=== PATIENT | female | born 1985 | race Caucasian/White ===

== ENCOUNTER 2017-11-09 21:30 | Inpatient (IN) | payer OTHER, BC ==
[2017-11-09] MEDS ORDERED: METHYLERGONOVINE 0.2 MG/ML 1 ML AMP IM PRN (23:09)
[2017-11-09] MEDS ORDERED: OXYTOCIN 10 UNIT/ML 1 ML VIAL IM PRN (23:09)
[2017-11-09] MEDS ORDERED: LIDOCAINE 1% (PF) 10 MG/ML (30 ML SDV) SQ PRN (23:09)
[2017-11-09] MEDS ORDERED: CARBOPROST TROMETHAMINE 250 MCG/ML 1 ML AMP IM PRN (23:09)
[2017-11-09] MEDS ORDERED: TERBUTALINE 1 MG/ML VIAL SQ PRN (23:09)
[2017-11-09] MEDS ORDERED: BUTORPHANOL 1 MG/ML 1 ML VIAL IV PRN (23:11)
[2017-11-09] MEDS: LACTATED RINGERS 1,000 ML IV SCH ×2 (23:31→23:50)
[2017-11-09] MEDS ORDERED: fentaNYL (PF) 50 MCG/ML 5 ML AMP ONE (23:58)
[2017-11-09] MEDS ORDERED: SODIUM CHLORIDE 0.9% 100 ML BAG ONE (23:58)
[2017-11-09] MEDS ORDERED: BUPIVACAINE (PF) 0.25% 30 ML VIAL ONE (23:58)
[2017-11-10 00:06] LABS: Basophils % (A) 0 %; Eosinophils # (A) 0.2 k/uL (0-0.7); Eosinophils % (A) 1 %; HCT 36.9 % (34.0-46.0); HGB 12.2 gm/dL (11.4-16.0); Lymphocytes # (A) 3.1 k/uL (1.0-4.8); Lymphocytes % (A) 25 %; MCH 30.1 pg (25.0-35.0); MCHC 33.1 g/dL (31.0-37.0); MCV 90.9 fL (80.0-100.0); Mean Platelet Volume 7.1; Monocytes # (A) 0.8 k/uL (0-1.0); Monocytes % (A) 6 %; Neutrophils # (A) 8.3 k/uL (1.3-7.7); Neutrophils % (A) 65 %; Platelet Count 390 k/uL (150-450); RBC 4.06 m/uL (3.80-5.40); RDW 13.6 % (11.5-15.5); WBC 12.8 k/uL (3.8-10.6)
--- NOTE | 2017-11-10 02:18 | P.HPOB ---
History of Present Illness H&P Date: 11/10/17 Chief Complaint: 40-0/7 weeks, active labor The patient is a 32-year-old 4 para 2011 admitted at 40-0/7 weeks as established by last menstrual period and confirmed by second trimester ultrasound perches admitted in early active labor with all signs reassuring. Her has been uncomplicated. She does carry a history of - induced hypertension in her previous which is not an evidence today. Group B strep status is negative. Obstetrical history: 4 para 2012 with 2 term vaginal deliveries without , occasions. She did have one early miscarriage not requiring D&C. Current statistics are listed in history of present illness. EDC of 2017 was established by last menstrual period and confirmed by 19 week ultrasound. Laboratory workup done traits of blood type of A+ with a negative antibody screen. Rubella status is immune. All other laboratory workup was within normal limits. Early Glucola and second trimester Glucola were within normal limits. Group B strep status is negative. Gynecologic history: Unremarkable with no history of any infections to include STDs. Review of Systems Review of systems is confined to history of present illness. Past Medical History Past Medical History: GERD/Reflux History of Any Multi-Drug Resistant Organisms: None Reported Additional Past Surgical History / Comment(s): wisdom teeth Past Anesthesia/Blood Transfusion Reactions: No Reported Reaction Past Psychological History: No Psychological Hx Reported Smoking Status: Never smoker Past Alcohol Use History: None Reported Past Drug Use History: None Reported - Past Family History Father Family Medical History: Hypertension Medications and Allergies Home Medications Medication Instructions Recorded Confirmed Type Pantoprazole Sodium [Protonix] 1 tab PO DAILY 11/08/14 11/09/17 History Pnv,Calcium 72/Iron/Folic Acid 1 tab PO DAILY 11/08/14 11/09/17 History [Preplus Ca-Fe 27 mg-FA 1 mg Tb] Allergies Allergy/AdvReac Type Severity Reaction Status Date / Time No Known Allergies Allergy Verified 11/09/17 21:46 Exam Vital Signs Temp Pulse Resp BP 11/09/17 21:48 98.4 F 116 H 18 159/86 Intake and Output 11/09/17 11/09/17 11/10/17 14:59 22:59 06:59 Other: Weight 92.079 kg 92.079 kg In general, this is a well-developed, well-nourished white female in no acute distress. Her heart has a regular rhythm and rate without murmur. Her lungs are clear to auscultation bilaterally in all chapman. Her abdomen is gravid, nondistended, has normal active bowel sounds, is soft, nontender, and without any palpable masses aside from the uterine fundus. Her extremities are without any cyanosis, clubbing, or edema and are nontender to palpation bilaterally. Digital cervical examination on straights her cervix to be approximately 8 cm dilated, 80% effaced, the vertex in presentation at -2 station. Artificial rupture of membranes is carried out demonstrating clear fluid. Results Result Diagrams: 11/09/17 23:35 Abnormal Lab Results - Last 24 Hours (Table) 11/09/17 Range/Units 23:35 WBC 12.8 H (3.8-10.6) k/uL Neutrophils # 8.3 H (1.3-7.7) k/uL Assessment and Plan (1) Active labor at term Current Visit: Yes Status: Acute Code(s): [id number] - SNOMED Code(s): 20571676 Plan: The patient has been admitted for close maternal and surveillance. Expectant management is being practiced. She has an epidural catheter in place for analgesia. We will anticipate normal vaginal delivery in the near future.
[2017-11-10 03:22] VITALS: BMI 37.1
[2017-11-10] MEDS ORDERED: HYDROcodone/APAP 7.5-325MG 1 EACH TAB PO PRN (03:42)
[2017-11-10] MEDS ORDERED: diphenhydrAMINE 25 MG CAP PO PRN (03:42)
[2017-11-10] MEDS ORDERED: LANOLIN CREAM 5 GM TUBE TOPICAL PRN (03:42)
[2017-11-10] MEDS ORDERED: HYDROCORTISONE 2.5% RECTAL CREAM 30 GM TUBE RECTAL PRN (03:42)
[2017-11-10] MEDS ORDERED: ZOLPIDEM 5 MG TAB PO PRN (03:42)
[2017-11-10] MEDS ORDERED: diphenhydrAMINE 50 MG CAP PO PRN (03:42)
[2017-11-10] MEDS ORDERED: SIMETHICONE 80 MG CHEWABLE PO PRN (03:42)
[2017-11-10] MEDS ORDERED: BENZOCAINE/MENTHOL SPRAY 1 GM/SPRAY AEROSOL TOPICAL PRN (03:42)
[2017-11-10] MEDS ORDERED: WITCH HAZEL 1 EACH MED..PAD TOPICAL PRN (03:42)
[2017-11-10] MEDS ORDERED: HYDROcodone/APAP 5-325MG 1 EACH TAB PO PRN (03:42)
[2017-11-10] MEDS ORDERED: diphenhydrAMINE 50 MG/ML 1 ML VIAL IVP PRN ×2 (03:42)
[2017-11-10] MEDS ORDERED: OXYTOCIN 20 UNITS/1000 ML NS 1,000 ML IV SCH (03:45)
--- NOTE | 2017-11-10 03:45 | P.PROBDLV ---
Vaginal Delivery Note - . Vaginal Delivery Note: The patient is a 32-year-old 4 para 2011 admitted at 40-0/7 weeks by good dating parameters perches admitted in early active labor with all signs reassuring. Her has been uncomplicated and group B strep status is negative. On labor and delivery she made progress into the active phase of labor and had an epidural catheter placed for analgesia. She underwent artificial rupture of membranes demonstrating clear fluid. She then progressed fairly quickly to complete and 0 station. She pushed over the course of approximately 8-10 minutes to a normal spontaneous vaginal delivery of a viable 8 lbs. 0 oz. baby boy with Apgars of 9 at 1 minute and 9 at 5 minutes delivered in the left occiput anterior position. There was a body cord 1 which was reduced following delivery of the . The placenta was delivered spontaneously, intact, and grossly normal with a grossly normal three-vessel cord inserted approximately 2-3 cm from the margin of the placental disc. There was a small midline first-degree perineal laceration was repaired with a single [id number] stitch of 3-0 chromic catgut without difficulty. Estimated blood loss for the entire case was approximately 200 mL. There were no complications. All sponge, instrument, and needle counts were correct. Both mother and infant are resting comfortably in recovery.
[2017-11-10] MEDS: IBUPROFEN 600 MG TAB PO PRN ×4 (04:09→22:41)
[2017-11-10] MEDS: SENNOSIDES-DOCUSATE SODIUM 1 EACH TAB PO SCH ×2 (09:34→21:27)
[2017-11-10] MEDS: ACETAMINOPHEN TAB 325 MG TAB PO PRN (21:38)
[2017-11-11] MEDS: IBUPROFEN 600 MG TAB PO PRN (03:58)
[2017-11-11] MEDS: ACETAMINOPHEN TAB 325 MG TAB PO PRN (05:44)
--- NOTE | 2017-11-11 08:45 | P.DS ---
Providers Date of admission: 11/09/17 23:17 Expected date of discharge: 11/11/17 Attending physician: Ashley Jorgensen Primary care physician: Stated None - Discharge Diagnosis(es) (1) Active labor at term Current Visit: Yes Status: Acute (2) 39 weeks gestation of Current Visit: No Status: Acute (3) Advanced maternal age (AMA) in Current Visit: No Status: Acute (4) Normal spontaneous vaginal delivery Current Visit: No Status: Acute Hospital Course: This is a very pleasant 32-year-old 4 para 2011 that was admitted at 40 -0/7 weeks, presented to labor and delivery in active labor on 11/10. She progressed through labor eventually getting an epidural for analgesia and underwent artificial rupture of membranes. She progressed to complete, and had a normal spontaneous vaginal delivery of a viable male weight of 8 lbs. 0 oz., Apgars of 9 and 9 at one and 5 minutes respectively. Patient's course has been uneventful. On this day #1 she is ambulating and voiding without difficulty. She is tolerating a regular diet without nausea or vomiting. She does wish discharge home. Patient Condition at Discharge: Good Plan - Discharge Summary New Discharge Prescriptions: No Action Pnv,Calcium 72/Iron/Folic Acid [Preplus Ca-Fe 27 mg-FA 1 mg Tb] 1 tab PO DAILY Pantoprazole Sodium [Protonix] 1 tab PO DAILY Discharge Medication List Pantoprazole Sodium [Protonix] 1 tab PO DAILY 11/08/14 [History] Pnv,Calcium 72/Iron/Folic Acid [Preplus Ca-Fe 27 mg-FA 1 mg Tb] 1 tab PO DAILY 11/08/14 [History] Follow up Appointment(s)/Referral(s): Ashley Jorgensen DO [Doctor of Osteopathic Medicine] - 4 Weeks Patient Instructions/Handouts: Vaginal Delivery (DC), Vaginal Delivery (GEN) Activity/Diet/Wound Care/Special Instructions: No tub baths or intercourse until 6 weeks Discharge Disposition: HOME SELF-CARE
[2017-11-11 10:08] VITALS: TEMP 98.4
[2017-11-11 11:26] VITALS: BP 146/94; PULSE 100
[2017-11-11 11:30] VITALS: RESP 18
[2017-11-11] MEDS: SENNOSIDES-DOCUSATE SODIUM 1 EACH TAB PO SCH (11:42)
== END 2017-11-11 11:20 | disposition home or self-care (01) | DRG 775 ==
LOC: FBPOP 21:30 → 4FBP 23:17
PROVIDERS: ADMIT Obstetrics & Gynecology; ATTEND Obstetrics & Gynecology Obstetrics
PROC: 10E0XZZ Delivery of Products of Conception, External Approach (ICD-10-PCS; principal; 2017-11-10)
PROC: 0HQ9XZZ Repair Perineum Skin, External Approach (ICD-10-PCS; 2017-11-10)
PROC: 00HU33Z Insertion of Infusion Device into Spinal Canal, Percutaneous Approach (ICD-10-PCS; 2017-11-10)
PROC: 3E0R3BZ Introduction of Anesthetic Agent into Spinal Canal, Percutaneous Approach (ICD-10-PCS; 2017-11-10)
DX: O99.62 Diseases of the digestive system complicating childbirth (principal); K21.9 Gastro-esophageal reflux disease without esophagitis; O69.89X0 Labor and delivery complicated by other cord complications, not applicable or unspecified; O70.0 First degree perineal laceration during delivery; Z37.0 Single live birth; Z3A.40 40 weeks gestation of pregnancy; Z82.49 Family history of ischemic heart disease and other diseases of the circulatory system
CPT/HCPCS: 59025; 85025; 99213

== ENCOUNTER → 2022-02-16 | Outpatient (CLI) | payer OTHER, BC ==
[2022-02-16 21:48] LABS: Alternaria alternata IgE <0.10 kU/L; Aspergillus fumagatus IgE <0.10 kU/L; Birch IgE <0.10 kU/L; Cat Epith & Dander IgE 0.68 kU/L; Cladosporian herbarum IgE <0.10 kU/L; Cockroach IgE <0.10 kU/L; Dermato. farinae IgE <0.10 kU/L; Dog Dander IgE <0.10 kU/L; Egg White IgE <0.10 kU/L; Maple (Box Elder) IgE <0.10 kU/L; Oak IgE <0.10 kU/L; Peanut IgE <0.10 kU/L; Ragweed,Common IgE <0.10 kU/L
== END | disposition home or self-care (01) ==
LOC: LABWHC1 11:18
PROVIDERS: ATTEND Otolaryngology
DX: L50.0 Allergic urticaria (principal)
CPT/HCPCS: 36415; 82785; 86003